=== PATIENT | female | born 1965 | race Caucasian/White ===

== ENCOUNTER 2016-12-19 14:51 | Emergency (ER) | payer MEDICAID, OTHER ==
[~2016-12-19] VITALS: Ht 165.1 cm; Wt 75.0 kg
[~2016-12-19 14:51] MED LIST: HYDR-523 PO; ZIPR80CA2 PO
[2016-12-19] MEDS ORDERED: MORPHINE SULFATE 4 MG/ML CPJ (NOT FOR IM USE) IV STA (15:18)
[2016-12-19] MEDS ORDERED: ONDANSETRON HCL 4MG/2ML VIAL IV STA (15:18)
[2016-12-19] MEDS ORDERED: LORAZEPAM 2MG/ML CPJ IV ONE ×2 (15:30→19:45)
[2016-12-19] MEDS ORDERED: SODIUM CHLORIDE 0.9% 1000ML BAG (SEPSIS BOLUS) IV ONE (15:30)
[2016-12-19 15:50] LABS: HEMATOCRIT. 39.3 % (36.0-48.0); MEAN CORPUSCULAR HEMOGLOBIN 28.3 pg (28.0-32.0); MEAN CORPUSCULAR HGB CONC 33.2 g/dL (31.0-37.0); MEAN CORPUSCULAR VOLUME 85.4 fL (81.0-99.0); MEAN PLATELET VOLUME 8.4 fl (7.4-10.4); PLATELET 407 x1000/uL (130-400); RED CELL DISTRIBUTION WIDTH 16.4 % (11.6-14.6); WHITE BLOOD COUNT 14.9 x1000/uL (4.5-11.0)
[2016-12-19 15:59] LABS: DIFFERENTIAL COMMENT 1
[2016-12-19 16:03] LABS: ALANINE AMINOTRANSFERASE 29 IU/L (13-61); ALBUMIN 4.6 g/dL (3.4-5.0); ANION GAP 17; CALCIUM 9.5 mg/dL (8.5-10.1); CARBON DIOXIDE 24 mEq/L (21-32); CHLORIDE 106 mEq/L (98-107); INDEX HEMOLYSI 1 (1-3); INDEX ICTERIC 1 (1-4); INDEX LIPEMIC 1 (1-3); LIPASE 73 IU/L (73-393); UREA NITROGEN BLOOD 11 mg/dL (7-21); eGFR > 60 mL/min (>60)
[2016-12-19 16:07] LABS: LACTIC ACID 3.8 mmol/L (0.4-2.0)
[2016-12-19 16:25] LABS: HCG SCREEN NEGATIVE
[2016-12-19 16:36] LABS: ANISOCYTOSIS 1+; PLATELET ESTIMATE SLIGHTLY INCREASED
[2016-12-19 18:29] LABS: GLUCOSE URINE NEGATIVE (NEGATIVE); KETONES URINE 3+ (NEGATIVE); LEUKOCYTE ESTERASE URINE NEGATIVE (NEGATIVE); NITRITE URINE NEGATIVE (NEGATIVE); OCCULT BLOOD URINE 1+ (NEGATIVE); PH URINE 8.5 (4.5-8.0); PROTEIN URINE NEGATIVE (NEGATIVE); SPECIFIC GRAVITY URINE 1.016 (1.005-1.030); UROBILINOGEN URINE 0.2 E.U./dL (0.2-1.0)
[2016-12-19 18:33] LABS: CLARITY URINE CLEAR (CLEAR); COLOR URINE PALE YELLOW (YELLOW)
[2016-12-19 18:44] LABS: BACTERIA URINE NONE SEEN; RBC URINE 0-2 /hpf (0-2); SQUAMOUS EPITHELIAL CELL URINE 1+ /lpf (RARE/1+); WBC URINE 0-2 /hpf (0-2)
[2016-12-19] MEDS ORDERED: MORPHINE SULFATE 2 MG/ML CPJ (NOT FOR IM USE) IV ONE (19:45)
[2016-12-19 19:57] VITALS: BP 144/81
== END 2016-12-19 20:40 | disposition home or self-care (01) ==
LOC: ER 17:00
DX: T62.8X1A Toxic effect of other specified noxious substances eaten as food, accidental (unintentional), initial encounter (principal); Y92.89 Other specified places as the place of occurrence of the external cause; K57.90 Diverticulosis of intestine, part unspecified, without perforation or abscess without bleeding; F12.10 Cannabis abuse, uncomplicated; K44.9 Diaphragmatic hernia without obstruction or gangrene; Z90.49 Acquired absence of other specified parts of digestive tract
CPT/HCPCS: 36415; 74176; 80053; 81001; 83605; 83690; 84703; 85025; 87040; 93005; 96361; 96374; 96375; 96376; 99285; J2060; J2270; J2405; J7030; J7040; Z7610

== ENCOUNTER 2017-03-26 00:37 | Emergency (ER) | payer OTHER ==
[~2017-03-26] VITALS: Ht 165.1 cm; Wt 76.0 kg
[2017-03-26] MEDS ORDERED: MORPHINE SULFATE 4 MG/ML CPJ (NOT FOR IM USE) IV STA (01:21)
[2017-03-26] MEDS ORDERED: METOCLOPRAMIDE HCL 10MG/2ML VIAL IV STA (01:21)
[2017-03-26] MEDS ORDERED: SODIUM CHLORIDE 0.9% 1,000 ML IV ONE (01:21)
[2017-03-26 02:21] LABS: BASOPHILS % 0.5 % (0.0-2.0); EOSINOPHILS % 0.2 % (0.0-5.0); HEMATOCRIT. 38.6 % (36.0-48.0); HEMOGLOBIN. 12.5 g/dL (12.0-16.0); LYMPHOCYTES % 9.4 % (20.0-50.0); MEAN CORPUSCULAR HEMOGLOBIN 27.4 pg (28.0-32.0); MEAN CORPUSCULAR VOLUME 84.7 fL (81.0-99.0); MEAN PLATELET VOLUME 8.7 fl (7.4-10.4); NEUTROPHILS % 86.9 % (40.0-76.0); PLATELET 281 x1000/uL (130-400); RED BLOOD CELL COUNT 4.55 mill/uL (4.2-5.4); RED CELL DISTRIBUTION WIDTH 16.9 % (11.6-14.6)
[2017-03-26 02:25] LABS: CHLORIDE 108 mEq/L (98-107)
[2017-03-26 02:33] LABS: CARBON DIOXIDE 24 mEq/L (21-32)
[2017-03-26] MEDS ORDERED: MORPHINE SULFATE 4 MG/ML CPJ (NOT FOR IM USE) IV ONE (02:45)
[2017-03-26] MEDS ORDERED: LORAZEPAM 2MG/ML CPJ IV ONE (02:45)
[2017-03-26] MEDS ORDERED: KETOROLAC 30MG/ML VIAL IV ONE (05:45)
[2017-03-26 05:55] VITALS: BP 134/60
[2017-03-26] MEDS ORDERED: LORAZEPAM 1MG TABLET PO ONE (06:45)
[2017-03-26] MEDS ORDERED: IOHEXOL-300 100 ML BOTTLE ONE (12:48)
[2017-03-26] MEDS ORDERED: SODIUM CHLORIDE 0.9% 10ML VIAL ONE (12:48)
== END 2017-03-26 07:12 | disposition home or self-care (01) ==
LOC: ER 00:37
DX: K44.9 Diaphragmatic hernia without obstruction or gangrene (principal); N83.201 Unspecified ovarian cyst, right side; R11.2 Nausea with vomiting, unspecified; R19.7 Diarrhea, unspecified
CPT/HCPCS: 36415; 74177; 80053; 83690; 85025; 96361; 96374; 96375; 96376; 99285; A4216; J1885; J2060; J2270; J2765; J7030; Q9967; Z7610

== ENCOUNTER 2017-04-26 16:05 | Emergency (ER) | payer OTHER ==
[~2017-04-26] VITALS: Ht 165.1 cm; Wt 70.0 kg
[2017-04-26] MEDS ORDERED: SODIUM CHLORIDE 0.9% 1,000 ML IV ONE (20:10)
[2017-04-26] MEDS ORDERED: ONDANSETRON HCL 4MG/2ML VIAL IV STA ×2 (20:10→22:24)
[2017-04-26] MEDS ORDERED: MORPHINE SULFATE 4 MG/ML CPJ (NOT FOR IM USE) IV STA ×2 (20:10→22:24)
[2017-04-26 20:35] LABS: BASOPHILS % 0.6 % (0.0-2.0); EOSINOPHILS % 0.1 % (0.0-5.0); HEMATOCRIT. 36.8 % (36.0-48.0); HEMOGLOBIN. 12.1 g/dL (12.0-16.0); LYMPHOCYTES % 22.2 % (20.0-50.0); MEAN CORPUSCULAR HEMOGLOBIN 27.3 pg (28.0-32.0); MEAN CORPUSCULAR VOLUME 83.1 fL (81.0-99.0); MEAN PLATELET VOLUME 8.3 fl (7.4-10.4); MONOCYTES % 4.1 % (2.0-8.0); PLATELET 334 x1000/uL (130-400); RED BLOOD CELL COUNT 4.43 mill/uL (4.2-5.4); RED CELL DISTRIBUTION WIDTH 17.2 % (11.6-14.6)
[2017-04-26 20:37] LABS: CHLORIDE 104 mEq/L (98-107)
[2017-04-26 20:45] LABS: CARBON DIOXIDE 25 mEq/L (21-32)
[2017-04-26 20:59] LABS: CLARITY URINE CLOUDY (CLEAR); COLOR URINE YELLOW (YELLOW); GLUCOSE URINE NEGATIVE (NEGATIVE); KETONES URINE 2+ (NEGATIVE); LEUKOCYTE ESTERASE URINE NEGATIVE (NEGATIVE); NITRITE URINE NEGATIVE (NEGATIVE); OCCULT BLOOD URINE TRACE (NEGATIVE); PH URINE >=9.0 (4.5-8.0); PROTEIN URINE TRACE (NEGATIVE); UROBILINOGEN URINE 0.2 E.U./dL (0.2-1.0)
[2017-04-26] MEDS ORDERED: FAMOTIDINE 20MG/2ML VIAL IV STA (22:26)
[2017-04-26] MEDS ORDERED: LORAZEPAM 2MG/ML CPJ IV STA (22:26)
[2017-04-26] MEDS ORDERED: MAGNESIUM/ALUMINUM HYDROXIDE/SIMETHICONE 30ML UDC PO STA (23:19)
[2017-04-26] MEDS ORDERED: VISCOUS LIDOCAINE 2% 15 ML UDC PO STA (23:19)
[2017-04-26] MEDS ORDERED: DICYCLOMINE 10 MG/5 ML ORAL SYR PO STA (23:19)
[2017-04-27] VITALS: BP 129/80
== END 2017-04-27 01:00 | disposition home or self-care (01) ==
LOC: ER 16:10
DX: R10.30 Lower abdominal pain, unspecified (principal); R11.2 Nausea with vomiting, unspecified
CPT/HCPCS: 36415; 74000; 80053; 81001; 83690; 85025; 85610; 96361; 96374; 96375; 96376; 99285; J2060; J2270; J2405; J3490; J7030

== ENCOUNTER 2017-05-14 04:35 | Emergency (ER) | payer OTHER ==
[~2017-05-14] VITALS: Ht 165.1 cm; Wt 75.0 kg
[2017-05-14] MEDS ORDERED: SODIUM CHLORIDE 0.9% 1,000 ML IV ONE (04:58)
[2017-05-14] MEDS ORDERED: PANTOPRAZOLE SODIUM 40 MG/VIAL IV STA (04:58)
[2017-05-14] MEDS ORDERED: ONDANSETRON HCL 4MG/2ML VIAL IV STA (04:58)
[2017-05-14] MEDS ORDERED: KETOROLAC 30MG/ML VIAL IV STA (04:58)
[2017-05-14] MEDS ORDERED: FAMOTIDINE 20MG/2ML VIAL IV STA (04:58)
[2017-05-14 05:49] LABS: BASOPHILS % 0.1 % (0.0-2.0); EOSINOPHILS % 0.1 % (0.0-5.0); HEMATOCRIT. 38.7 % (36.0-48.0); HEMOGLOBIN. 12.9 g/dL (12.0-16.0); MEAN CORPUSCULAR HEMOGLOBIN 27.5 pg (28.0-32.0); MEAN PLATELET VOLUME 8.6 fl (7.4-10.4); MONOCYTES % 2.2 % (2.0-8.0); NEUTROPHILS % 77.6 % (40.0-76.0); PLATELET 320 x1000/uL (130-400); RED BLOOD CELL COUNT 4.67 mill/uL (4.2-5.4); RED CELL DISTRIBUTION WIDTH 17.5 % (11.6-14.6)
[2017-05-14 05:59] LABS: CLARITY URINE TURBID (CLEAR); COLOR URINE DARK YELLOW (YELLOW); GLUCOSE URINE NEGATIVE (NEGATIVE); KETONES URINE 3+ (NEGATIVE); LEUKOCYTE ESTERASE URINE 1+ (NEGATIVE); NITRITE URINE NEGATIVE (NEGATIVE); OCCULT BLOOD URINE 3+ (NEGATIVE); PH URINE 5.5 (4.5-8.0); PROTEIN URINE 1+ (NEGATIVE); SPECIFIC GRAVITY URINE 1.032 (1.005-1.030)
[2017-05-14 06:04] LABS: CARBON DIOXIDE 23 mEq/L (21-32); CHLORIDE 106 mEq/L (98-107); ETHANOL BLOOD < 10 mg/dL
[2017-05-14 06:14] LABS: *AMPHETAMINES SCREEN URINE NEGATIVE (NEGATIVE); *BARBITURATES SCREEN URINE NEGATIVE (NEGATIVE); *BENZODIAZEPINES SCREEN URINE NEGATIVE (NEGATIVE); *COCAINE SCREEN URINE NEGATIVE (NEGATIVE); CANNABINOID URINE SCREEN PRESUMTIVE POSITIVE (NEGATIVE); METHADONE URINE SCREEN NEGATIVE (NEGATIVE); OPIATES URINE SCREEN NEGATIVE (NEGATIVE); PHENCYCLIDINE URINE SCREEN NEGATIVE (NEGATIVE)
[2017-05-14] MEDS ORDERED: MORPHINE SULFATE 4 MG/ML CPJ (NOT FOR IM USE) IV ONE (07:00)
[2017-05-14] MEDS ORDERED: ONDANSETRON HCL 4MG/2ML VIAL IV ONE (07:00)
[2017-05-14 10:08] VITALS: BP 155/87
== END 2017-05-14 10:46 | disposition home or self-care (01) ==
LOC: ER 04:35
DX: R10.84 Generalized abdominal pain (principal); R11.2 Nausea with vomiting, unspecified; R19.7 Diarrhea, unspecified; F41.9 Anxiety disorder, unspecified
CPT/HCPCS: 36415; 74176; 76705; 80053; 80305; 81001; 83605; 83690; 85025; 93005; 96374; 96375; 96376; 99285; C9113; G0482; J1885; J2270; J2405; J3490; J7030; Z7610